=== PATIENT | male | born 1960 | race African-American/Black ===

== ENCOUNTER 2018-02-16 16:14 | Emergency (ER) | payer OTHER ==
--- NOTE | 2018-02-16 17:14 | RADIOLOGY REPORT (SQ) ---
EXAM DESCRIPTION: RIBS LEFT W/PA CHEST COMPLETED DATE/TIME: 02/16/2018 5:02 pm REASON FOR STUDY: fall COMPARISON: None. TECHNIQUE: Frontal view of the chest and additional views of the left ribs acquired. NUMBER OF VIEWS: 5 LIMITATIONS: None. FINDINGS: FRONTAL CXR: Low volumes with mild airspace disease/ subsegmental atelectasis left base. No overt pneumothorax appreciated. Normal cardiomediastinal silhouette. RIBS: Relatively nondisplaced anterior 6th and 7th rib fractures. OTHER: No other significant finding. IMPRESSION: 1. Anterior left 6th and 7th rib fractures, relatively nondisplaced. No pneumothorax e vident. 2. Contusion or mild subsegmental atelectasis left base. COMMENT: SITE OF TRAUMA/COMPLAINT MARKED/STAMP COMPLETED: YES. TECHNICAL DOCUMENTATION: JOB ID: [id number] [employer]- All Rights Reserved Reading location - IP/workstation name: [email or web address]
[2018-02-16] MEDS ORDERED: IBUPROFEN 800 MG TABLET PO ONE (17:30)
--- NOTE | 2018-02-16 18:07 | RADIOLOGY REPORT (SQ) ---
EXAM DESCRIPTION: CT CHEST WITHOUT COMPLETED DATE/TIME: 02/16/2018 5:52 pm REASON FOR STUDY: rib fx, check for pneumothorax COMPARISON: Chest and rib films from earlier. TECHNIQUE: CT scan performed of the chest without intravenous contrast. Images reviewed with lung, soft tissue and bone windows. Reconstructed coronal and sagittal MPR images reviewed. All images st ored on PACS. All CT scanners at this facility use dose modulation, iterative reconstruction, and/or weight based d osing when appropriate to reduce radiation dose to as low as reasonably achievable (ALARA). [facility]: Dose Right [facility]: CareDose [facility]: Dose Right [facility]: Teradose 4D [facility]: [employer] RADIATION DOSE: CT Rad equipment meets quality standard of care and radiation dose reduction techniq ues were employed. CTDIvol: 19.9 mGy. DLP: 743 mGy-cm. mGy. LIMITATIONS: No technical limitations. FINDINGS: LUNGS AND PLEURA: Minimal subsegmental atelectasis in the lingula. No pneumothorax. No p leural fluid. HILAR AND MEDIASTINAL STRUCTURES: No evidence of mediastinal hematoma. Normal caliber aorta. No abn ormal gas. HEART AND VASCULAR STRUCTURES: No aneurysm. No pericardial effusion. UPPER ABDOMEN: No significant findings. Limited exam. THYROID AND OTHER SOFT TISSUES: No masses. No adenopathy. BONES: Nondisplaced left anterior 6th and 7th rib fractures. HARDWARE: None in the chest. OTHER: No other significant findings. IMPRESSION: 1. No pneumothorax. 2. Known nondisplaced left anterior 6th and 7th rib fractures. TECHNICAL DOCUMENTATION: JOB ID: [id number] Quality ID # [id number]: Final reports with documentation of one or more dose reduction techniques (e.g., Au tomated exposure control, adjustment of the mA and/or kV according to patient size, use of iterative reconstruction technique) 2010 [employer]- All Rights Reserved Reading location - IP/workstation name: [email or web address]
--- NOTE | 2018-02-16 18:35 | ER Document Report ---
HPI - HPI Patient complains to provider of: Left rib pain Onset: Just prior to arrival Onset/Duration: Sudden Quality of pain: Throbbing Severity: Moderate Pain Level: 3 Context: Patient was playing softball and went up in the air to catch the ball, landing on his left side. Complains of left rib pain. Denies shortness of breath. Associated Symptoms: Hurts to breath. denies: Shortness of breath Exacerbated by: Movement Relieved by: Remaining still Similar symptoms previously: No Recently seen / treated by doctor: No - ROS ROS below otherwise negative: Yes Systems Reviewed and Negative: Yes All other systems reviewed and negative - NEURO Neurology: DENIES: Headache - CARDIOVASCULAR Cardiovascular: REPORTS: Chest pain - Left ribs - RESPIRATORY Respiratory: DENIES: Trouble Breathing - GASTROINTESTINAL Gastrointestinal: DENIES: Abdominal Pain - DERM Skin Color: Normal Past Medical History - General Information source: Patient - Social History Smoking Status: Never Smoker Chew tobacco use (# tins/day): No Frequency of alcohol use: Occasional Drug Abuse: None Lives with: Spouse/Significant other Family History: Reviewed & Not Pertinent Patient has suicidal ideation: No Patient has homicidal ideation: No - Medical History Medical History: Negative Surgical Hx: Negative Vertical Provider Document - CONSTITUTIONAL Agree With Documented VS: Yes Exam Limitations: No Limitations General Appearance: WD/WN, No Apparent Distress - INFECTION CONTROL TRAVEL OUTSIDE OF THE [place] IN LAST 30 DAYS: No - HEENT HEENT: Atraumatic, Normal ENT Exam, Normocephalic - NECK Neck: Normal Inspection - RESPIRATORY Respiratory: Breath Sounds Normal, No Respiratory Distress Notes: Left lower anterior ribs tender to palpation. No bruising. - CARDIOVASCULAR Cardiovascular: Regular Rate, Regular Rhythm - GI/ABDOMEN Gastrointestinal: Abdomen Soft - MUSCULOSKELETAL/EXTREMETIES Musculoskeletal/Extremeties: MAEW - NEURO Level of Consciousness: Awake, Alert, Appropriate - DERM Integumentary: Warm, Dry Course - Re-evaluation Re-evalutation: 02/16/18 18:32 Chest with rib x-ray showed left anterior rib fractures #6 and 7. No definite pneumothorax. Dr. palomo reviewed x-ray and advised CT of chest without contrast. CT of chest showed no pneumothorax, patient does have anterior left lower rib fractures #6 and 7. This was discussed with patient. Dr. palomo made aware of results of CT scan 02/16/18 18:34 - Vital Signs Vital signs: Temp Pulse Resp BP Pulse Ox 98.1 F 85 18 137/93 H 95 02/16/18 16:20 02/16/18 16:20 02/16/18 16:20 02/16/18 16:20 02/16/18 16:20 Discharge - Discharge Clinical Impression: Ribs, multiple fractures Qualifiers: Encounter type: initial encounter Fracture type: closed Laterality: left Qualified Code(s): S22.42XA - Multiple fractures of ribs, left side, initial encounter for closed fracture Condition: Good Disposition: HOME, SELF-CARE Additional Instructions: Ibuprofen or norco as needed for pain. Ice packs to ribs Splint ribs, and take deep breaths every 1-2 hours to help prevent development of pneumonia Copy of x-ray and CT provided to you for follow-up with your primary care provider, Dr. Melissa Orthopedist number provided on your discharge paperwork for follow-up if needed Prescriptions: Hydrocodone/Acetaminophen [Demorest 5-325 mg Tablet] 1 tab PO PRN PRN #15 tablet PRN Reason: Ibuprofen 800 mg PO TID PRN #30 tablet PRN Reason: Referrals: MAYELA MELISSA MD [Primary Care Provider] - Follow up as needed JOELLEN MARINO MD [ACTIVE STAFF] - Follow up as needed
[2018-02-16 18:39] VITALS: BP 144/92
== END 2018-02-16 18:43 | disposition home or self-care (01) ==
LOC: ER 16:14
DX: S22.42XA Multiple fractures of ribs, left side, initial encounter for closed fracture (principal); W01.0XXA Fall on same level from slipping, tripping and stumbling without subsequent striking against object, initial encounter; Y93.64 Activity, baseball
CPT/HCPCS: 71250; 99284

== ENCOUNTER 2019-08-17 09:44 | Emergency (ER) | payer OTHER ==
[2019-08-17 09:52] VITALS: BP 127/69
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
== END 2019-08-17 12:19 | disposition home or self-care (01) ==
LOC: ER 09:44
DX: M54.5 Low back pain (principal); V87.7XXA Person injured in collision between other specified motor vehicles (traffic), initial encounter
CPT/HCPCS: 72110; 99283